=== PATIENT | female | born 1985 | race Caucasian/White ===

== ENCOUNTER → 2020-09-10 | Outpatient (CLI) | payer BC ==
[2015-09-09 14:36] VITALS: BP 122/75
--- NOTE | 2020-09-10 15:10 | RAD ---
EXAM: Bilateral digital diagnostic mammogram with tomosynthesis; bilateral breast sonogram. HISTORY: 35-year-old female presents with nipple discharge. The patient reports a decrease in nipple discharge following a course of antibiotic therapy. TECHNIQUE: Full-field digital craniocaudal and mediolateral oblique 2D and 3D tomosynthesis images of both breasts and a true lateral view of the left breast are obtained for evaluation. Computer aided detection was applied. Sonographic imaging of both breasts targeted to the right subareolar location, right axillary tail and nodularity within the left breast was also performed. COMPARISON: None. This is a baseline mammogram. BREAST PARENCHYMAL DENSITY: Level B - Scattered fibroglandular densities. FINDINGS: There is a small circumscribed nodule within the posterior 10:00 position of the right cintia st, the location and morphology of which favors an intramammary lymph node. There is a nodular asymme try within the posterior 4:00 position of the left breast. There is no suspicious calcification or ar chitectural distortion. Sonographic imaging of the right breast demonstrates a 5 mm intramammary lymph node at the 9:00 posit ion 8 cm from the nipple. This demonstrates a slightly prominent cortex, but maintains a fatty hilum. There are benign-appearing bilateral axillary lymph nodes. There is no suspicious correlate for nodu lar asymmetry within the left breast demonstrated at the 4:00 position mammographically. IMPRESSION: 1. No suspicious finding to correlate with reported decreasing right nipple discharge. No intraductal lesion is seen. If the discharge recurs and becomes readily expressible, a galactogram can be consid ered for further evaluation. 2. Small intramammary lymph node within the right axillary tail with slightly prominent cortex. This may be reactive in etiology. There is also a suspected benign nodular asymmetry within the 4:00 posit ion of the left breast demonstrated mammographically which may represent a sonographically occult lym ph node. 3. BI-RADS Category 3: Probably benign finding(s). Axial short term follow up with a bilateral diagno stic mammogram in 6 months is recommended given the absence of prior studies to confirm mammographic stability. If your mammogram demonstrates that you have dense breast tissue, which could hide abnormalities, and if you have other risk factors for breast cancer that have been identified, you might benefit from s upplemental screening tests that may be suggested by your ordering physician. Dense breast tissue, i n and of itself, is a relatively common condition. This information is not provided to cause undue c oncern, but rather to raise your awareness and to promote discussion with your physician regarding th e presence of other risk factors, in addition to dense breast tissue. A report of your mammography re sults will be sent to you and your physician. You should contact your physician if you have any ques tions or concerns regarding this report. Mammography is a sensitive method for finding small breast cancers, but it does not detect them all a nd is not a substitute for careful clinical examination. A negative mammogram does not negate a clin ically suspicious finding and should not result in delay in biopsying a clinically suspicious abnorma lity. PQRS compliance statement - Patient information was entered into a reminder system with a target due date for the next mammogram. "Our facility is accredited by the [employer] Mammography [employer]." Electronically signed by: Serina Moore MD (09/10/2020 3:08 PM) [id number]
== END ==
LOC: MAMMO 13:41
PROVIDERS: ATTEND Physician Assistant Medical
DX: N63.11 Unspecified lump in the right breast, upper outer quadrant (principal); N63.23 Unspecified lump in the left breast, lower outer quadrant; N64.52 Nipple discharge
CPT/HCPCS: 76642; 77066; G0279; 77062

== ENCOUNTER → 2020-10-21 | Outpatient (CLI) | payer BC ==
[2015-09-09 14:36] VITALS: BP 122/75
--- NOTE | 2020-10-21 14:00 | RAD ---
EXAM: Right breast sonogram. HISTORY: 35-year-old female presents with right breast tingling and pain. The patient reports no foca l palpable lump. TECHNIQUE: Sonographic imaging of the right breast targeted to sites of prior sonographic findings an d a site of reported concern was performed. COMPARISON: Sonogram and mammogram dated 09/10/2020. FINDINGS: There is a small circumscribed solid nodule at the 9:00 position 8 cm from the nipple measu ring 5 x 4 x 4 mm, stable in appearance. This demonstrates an eccentric echogenic component favoring a fatty hilum associated with an intramammary lymph node. There is a 1.6 cm benign lymph node with fa tty hilum at the 10:00 position 13 cm from the nipple, stable compared to the prior study. There is a 2.5 cm benign lymph node with fatty hilum at the 11:00 position 13 cm from the nipple, increased in size compared to the prior study. This maintains benign morphology and is likely physiologic or react camilo in etiology. There is no suspicious finding within the superior medial breast at the site of repo rted patient concern. IMPRESSION: 1. Stable 5 mm nodule within the 9:00 position of the right breast 8 cm from the nipple, the appearan ce of which favors an intramammary lymph node. There is also a stable axillary lymph node at the 10:0 0 position 13 cm from the nipple. There has been slight interval increase in a suspected physiologic or reactive lymph node at the 11:00 position 13 cm from nipple. 2. No new suspicious sonographic finding. 3. Note is made that the patient reports resolution of previously described nipple discharge. 4. BI-RADS Category 3: Probably benign finding(s). The patient will be due for bilateral diagnostic m ammography in 5 months according to the 6 month follow up interval recommended on a mammogram perform ed 09/10/2020. Electronically signed by: Serina Moore MD (10/21/2020 1:57 PM) [id number]
== END ==
LOC: US 13:09
PROVIDERS: ATTEND Physician Assistant Medical
DX: N63.15 Unspecified lump in the right breast, overlapping quadrants (principal); N64.52 Nipple discharge
CPT/HCPCS: 76641

== ENCOUNTER → 2020-10-23 | Outpatient (CLI) | payer BC ==
[2015-09-09 14:36] VITALS: BP 122/75
== END ==
LOC: LAB 07:23
PROVIDERS: ATTEND Surgery
DX: Z01.812 Encounter for preprocedural laboratory examination (principal); Z20.822 Contact with and (suspected) exposure to COVID-19
CPT/HCPCS: U0003

== ENCOUNTER 2021-03-31 09:45 | Emergency (ER) | payer BC, MEDICAID ==
[~2021-03-31] VITALS: Ht 175.3 cm; Wt 100.0 kg
[2021-03-31] MEDS ORDERED: KETOROLAC 30 MG/ML VIAL. IVP ONE (11:15)
[2021-03-31] MEDS ORDERED: ONDANSETRON PF 4 MG/2 ML VIAL. IVP ONE (11:15)
--- NOTE | 2021-03-31 11:19 | PHYS DOC ---
Past History Past Medical History: Kidney Stones, Ovarian Cyst Past Surgical History: Other Additional Past Surgical Histo: R knee surgery Alcohol Use: Occasionally Drug Use: Marijuana General Adult EDM: Chief Complaint: ABDOMINAL PAIN HPI: HPI: Patient is a 36-year-old female that presents today with left lower quadrant abdominal pain. She states pain started about 830 this morning, she has had nausea and vomiting with this pain, she states it feels similar to her last kidney stone that she had 5 years ago. Patient denies fever and chills, patient denies vaginal bleeding vaginal discharge, patient denies any chance of due to Nexplanon implant. Review of Systems: Review of Systems: Constitutional: Denies fever or chills Eyes: Denies change in visual acuity HENT: Denies nasal congestion or sore throat Respiratory: Denies cough or shortness of breath Cardiovascular: Denies chest pain or edema GI: LLQ abdominal pain, nausea, vomiting, denies bloody stools or diarrhea /VOLUNTEER SERVICES ASSISTANT: Denies dysuria, vaginal bleeding vaginal discharge Musculoskeletal: Denies back pain or joint pain Integument: Denies rash Neurologic: Denies headache, focal weakness or sensory changes Endocrine: Denies polyuria or polydipsia Lymphatic: Denies swollen glands Psychiatric: Denies depression or anxiety Allergies: Allergies: Allergies Coded Allergies Type Severity Reaction Last Updated Verified No Known Drug Allergies 10/26/20 No Physical Exam: PE: Constitutional: Well developed, well nourished, mild distress, non-toxic appearance. [] HENT: Normocephalic, atraumatic, bilateral external ears normal, oropharynx thom st, no oral exudates, nose normal. [] Eyes: PERRLA, EOMI, conjunctiva normal, no discharge. [] Neck: Normal range of motion, no tenderness, supple, no stridor. [] Cardiovascular:Heart rate regular rhythm, no murmur [] Lungs & Thorax: Bilateral breath sounds clear to auscultation [] Abdomen: Bowel sounds normal, soft abdomen with tenderness noted in left lower quadrant, no masses noted Skin: Warm, dry, no erythema, no rash. [] Back: No tenderness, left-sided CVA tenderness. [] Extremities: No tenderness, no cyanosis, no clubbing, ROM intact, no edema. [] Neurologic: Alert and oriented X 3, normal motor function, normal sensory function, no focal deficits noted. [] Psychologic: Affect normal, judgement normal, mood normal. [] Current Patient Data: Labs: Laboratory Tests Test 03/31/21 10:47 03/31/21 11:20 Urine Collection Type Unknown Urine Color Yellow Urine Clarity Clear Urine pH 6.5 Urine Specific [place] >=1.030 Urine Protein Neg Urine Glucose (UA) Neg mg/dL Urine Ketones (Stick) Neg mg/dL Urine Blood Trace Urine Nitrite Neg Urine Bilirubin Neg Urine Urobilinogen Dipstick 0.2 mg/dL Urine Leukocyte Esterase Neg Urine RBC 1-2 /HPF Urine WBC 1-4 /HPF Urine Squamous Epithelial Cells Many /LPF Urine Bacteria 0 /HPF Urine Mucus Mod /LPF Urine Test Negative White Blood Count 9.2 x10^3/uL Red Blood Count 4.64 x10^6/uL Hemoglobin 12.3 g/dL Hematocrit 38.0 % Mean Corpuscular Volume 82 fL Mean Corpuscular Hemoglobin 27 pg Mean Corpuscular Hemoglobin Concent 32 g/dL Red Cell Distribution Width 15.0 % Platelet Count 362 x10^3/uL Neutrophils (%) (Auto) 75 % Lymphocytes (%) (Auto) 18 % Monocytes (%) (Auto) 6 % Eosinophils (%) (Auto) 1 % Basophils (%) (Auto) 1 % Neutrophils # (Auto) 7.0 x10^3uL Lymphocytes # (Auto) 1.6 x10^3/uL Monocytes # (Auto) 0.5 x10^3/uL Eosinophils # (Auto) 0.0 x10^3/uL Basophils # (Auto) 0.1 x10^3/uL Sodium Level 135 mmol/L Potassium Level 4.1 mmol/L Chloride Level 104 mmol/L Carbon Dioxide Level 27 mmol/L Anion Gap 4 Blood Urea Nitrogen 8 mg/dL Creatinine 0.5 mg/dL Estimated GFR (Cockcroft-Gault) 139.6 BUN/Creatinine Ratio 16 Glucose Level 102 mg/dL Calcium Level 9.0 mg/dL Total Bilirubin 0.3 mg/dL Aspartate Amino Transf (AST/SGOT) 10 U/L Alanine Aminotransferase (ALT/SGPT) 23 U/L Alkaline Phosphatase 95 U/L Total Protein 7.3 g/dL Albumin 3.5 g/dL Albumin/Globulin Ratio 0.9 Lipase 36 U/L Current Medications Medications (Trade) Dose Ordered Sig/Cyrus Route PRN Reason Start Time Stop Time Status Last Admin Dose Admin Ondansetron HCl (Zofran) 4 mg 1X ONCE IVP 03/31/21 11:15 03/31/21 11:18 DC Ketorolac Tromethamine (Toradol 30mg Vial) 30 mg 1X ONCE IVP 03/31/21 11:15 03/31/21 11:18 DC Vital Signs: Vital Signs Date Time Temp Pulse Resp B/P (MAP) Pulse Ox O2 Delivery O2 Flow Rate FiO2 03/31/21 10:17 98.7 85 16 115/74 (88) 96 EKG: EKG: [] Radiology/Procedures: Radiology/Procedures: REASON: abdominal pain hx of stone and ovarian cyst PROCEDURE: CT ABDOMEN PELVIS WO CONTRAST CT ABDOMEN+PELVIS WO History: Abdominal pain. History of stone and ovarian cyst. Comparison: CT abdomen and pelvis 09/09/2015 Technique: CT abdomen and pelvis without contrast. Findings: The lung bases are clear. The liver, gallbladder, pancreas, spleen, and adrenal glands are unremarkable. Multiple bilateral punctate nephroliths. No hydronephrosis. No perinephric fat stranding. No ureterolithiasis or hydroureter. Stomach and small bowel are unremarkable. Normal appendix. No excessive colonic stool. No focal wall thickening. The bladder is relatively decompressed and unremarkable. The uterus contains a large peripherally calcified anterior uterine body fibroid measuring 1.9 cm, new from comparison. Small free fluid in the pelvis. The ovaries are unremarkable. No intra-abdominal free air. The unenhanced vasculature is unremarkable. Fat-containing umbilical hernia. No adenopathy. Degenerative endplate changes at T11-T12. No acute osseous abnormality. Impression: 1. Small pelvic free fluid may be physiologic. Ovaries are unremarkable. 2. Bilateral punctate nephrolithiasis without hydronephrosis. 3. New anterior uterine body fibroid measuring 1.9 cm with peripheral calcification. [] Heart Score: C/O Chest Pain: N/A Risk Factors: Risk Factors: DM, Current or recent (<one month) smoker, HTN, HLP, family history of CAD, obesity. Risk Scores: Score 0 - 3: 2.5% MACE over next 6 weeks - Discharge Home Score 4 - 6: 20.3% MACE over next 6 weeks - Admit for Clinical Observation Score 7 - 10: 72.7% MACE over next 6 weeks - Early Invasive Strategies Course & Med Decision Making: Course & Med Decision Making Pertinent Labs and Imaging studies reviewed. (See chart for details) 1217 reassessment of patient shows that her nausea is gone and her pain is much improved. Patient radiological and laboratory results were reviewed with her informing her that her labs show no acute process, her CT scan did show a uterine mass, she states that she had that when she was and they said that clauses not causing her any problems that they will just monitor her, unsure of what is causing her lower abdominal pain, informed her that I will send a prescription for Zofran and she can take Tylenol and/or ibuprofen as needed for pain. Patient verbalized understanding of this and agreeable to the plan of care. Valentino Disclaimer: Valentino Disclaimer: This electronic medical record was generated, in whole or in part, using a voice recognition dictation system. Departure Departure: Impression: Primary Impression: Abdominal pain Qualified Codes: R10.32 - Left lower quadrant pain Additional Impression: Nausea & vomiting Qualified Codes: R11.2 - Nausea with vomiting, unspecified Disposition: HOME / SELF CARE / HOMELESS Condition: STABLE Referrals: CRISTINA PEACOCK (PCP) Patient Instructions: Abdominal Pain, Clear Liquid Diet, Nausea and Vomiting Additional Instructions: Clear liquid diet for the next 12 to 24 hours then advance as tolerated Zofran 1 tablet every 8 hours as needed for nausea, when taking this medication take a tablet with a sip of water wait 30 to 45 minutes and then try clear liquids, use with caution may cause constipation Follow-up with your primary care physician in 3 to 5 days if her symptoms do not improve Return to the emergency department if your pain localizes to the right lower quadrant, you develop a fever, you are unable to keep any by mouth fluids down even with the use of Zofran. Scripts Ondansetron (ONDANSETRON ODT) 4 Mg Tab.rapdis 1 TAB PO PRN Q6-8HRS for nausea, #16 TAB Prov: EVE MARIE BUSINESS RULES ANALYST 03/31/21 EVE MAIRE BUSINESS RULES ANALYST Mar 31, 2021 11:19
[2021-03-31 11:36] LABS: BASO # 0.1 x10^3/uL (0.0-0.2); BASO % 1 % (0-3); EOS % 1 % (0-3); HEMOGLOBIN 12.3 g/dL (12.0-15.5); LYMPH # 1.6 x10^3/uL (1.0-4.8); LYMPH % 18 % (24-48); MEAN CORPUSCULAR HEMOGLOBIN 27 pg (25-35); MEAN CORPUSCULAR HGB CONC 32 g/dL (31-37); MEAN CORPUSCULAR VOLUME 82 fL (79-100); MONO # 0.5 x10^3/uL (0.0-1.1); MONO % 6 % (0-9); NEUT % 75 % (31-73); PLATELET COUNT 362 x10^3/uL (140-400); RED BLOOD COUNT 4.64 x10^6/uL (3.50-5.40); WHITE BLOOD COUNT 9.2 x10^3/uL (4.0-11.0)
[2021-03-31 11:44] LABS: CREATININE 0.5 mg/dL (0.6-1.0); GFR 139.6; POTASSIUM 4.1 mmol/L (3.5-5.1)
[2021-03-31 11:50] LABS: ALBUMIN 3.5 g/dL (3.4-5.0); ALBUMIN/GLOBULIN RATIO 0.9 (1.0-1.7); TOTAL BILIRUBIN 0.3 mg/dL (0.2-1.0); TOTAL PROTEIN 7.3 g/dL (6.4-8.2)
[2021-03-31 12:02] LABS: BACTERIA,URINE 0 /HPF (0-FEW); CLARITY,URINE CLEAR; COLOR,URINE YELLOW; GLUCOSE,URINE NEG (NEG); NITRITE,URINE NEG (NEG); SQUAMOUS EPITHELIAL CELL,UR MANY /LPF; UROBILINOGEN,URINE 0.2 mg/dL (0.2 mg/dL)
--- NOTE | 2021-03-31 12:02 | RAD ---
CT ABDOMEN+PELVIS WO History: Abdominal pain. History of stone and ovarian cyst. Comparison: CT abdomen and pelvis 09/09/2015 Technique: CT abdomen and pelvis without contrast. Findings: The lung bases are clear. The liver, gallbladder, pancreas, spleen, and adrenal glands are unremarkable. Multiple bilateral pun ctate nephroliths. No hydronephrosis. No perinephric fat stranding. No ureterolithiasis or hydrourete r. Stomach and small bowel are unremarkable. Normal appendix. No excessive colonic stool. No focal wall thickening. The bladder is relatively decompressed and unremarkable. The uterus contains a large peripherally megan cified anterior uterine body fibroid measuring 1.9 cm, new from comparison. Small free fluid in the p poncho. The ovaries are unremarkable. No intra-abdominal free air. The unenhanced vasculature is unremarkable. Fat-containing umbilical hernia. No adenopathy. Degenerat camilo endplate changes at T11-T12. No acute osseous abnormality. Impression: 1. Small pelvic free fluid may be physiologic. Ovaries are unremarkable. 2. Bilateral punctate nephrolithiasis without hydronephrosis. 3. New anterior uterine body fibroid measuring 1.9 cm with peripheral calcification. ------ Exposure: One or more of the following individualized dose reduction techniques were utilized for thi s examination: 1. Automated exposure control 2. Adjustment of the mA and/or kV according to patient size 3. Use of iterative reconstruction technique. Electronically signed by: Tommy Alvarez MD (03/31/2021 12:00 PM) [id number]
[2021-03-31 12:03] LABS: U PREG PATIENT NEGATIVE (NEG)
[2021-03-31] MEDS ORDERED: ONDA4TAB12 PO (12:22)
[2021-03-31 12:39] VITALS: BP 110/52
== END 2021-03-31 12:42 | disposition home or self-care (01) ==
LOC: ER 09:45
DX: R10.32 Left lower quadrant pain (principal); R11.2 Nausea with vomiting, unspecified; Z87.442 Personal history of urinary calculi
CPT/HCPCS: 36415; 74176; 80053; 81001; 81025; 83690; 85025; 96374; 96375; 99284; J1885; J2405